=== PATIENT | female | born 1955 | race Caucasian/White ===

== ENCOUNTER 2016-11-29 06:28 | Inpatient (IN) | payer BC, MEDICARE ==
[2016-11-23 14:34] LABS: BASOPHILS 0.3 %; BASOPHILS ABSOLUTE 0.02 10/3/uL (0.0-0.16); EOSINOPHILS 0.8 %; EOSINOPHILS ABSOLUTE 0.06 10/3/uL (0.0-0.53); HEMATOCRIT 41.5 % (36.0-48.0); HEMOGLOBIN 14.1 g/dL (12.0-16.0); IMMATURE GRANULOCYTES 0.1 %; IMMATURE GRANULOCYTES ABSOLUTE 0.01 10/3/uL (0.0-0.11); LYMPHOCYTES 33.9 %; LYMPHOCYTES ABSOLUTE 2.42 10/3/uL (0.67-4.30); MEAN CORPUSCULAR HEMOGLOB 32.7 pg (26.0-34.0); MEAN CORPUSCULAR VOLUME 96.3 fL (80-100); MEAN PLATELET VOLUME 9.6 fL (9.2-13.0); MONOCYTES 7.4 %; MONOCYTES ABSOLUTE 0.53 10/3/uL (0.21-1.20); NEUTROPHILS 57.5 %; NEUTROPHILS ABSOLUTE 4.09 10/3/uL (2.02-8.40); PLATELET COUNT 285 10/3/uL (150-400); RBC DISTRIBUTION WIDTH 12.3 % (12.0-16.0); RED CELL COUNT 4.31 10/6/uL (4.0-5.6); WHITE BLOOD CELLS 7.1 10/3/uL (4.5-10.5)
[2016-11-23 14:35] LABS: MANUAL DIFF NO %
[2016-11-23 14:48] LABS: ALKALINE PHOSPHATASE 65 U/L (45-117); CHLORIDE, SERUM 98 MMOL/L (96-112); CREATININE 1.15 MG/DL (0.55-1.02); GFR AFRICAN AMERICAN 60 ML/MIN (>=60); GFR NON AFRICAN AMERICAN 52 ML/MIN (>=60); POTASSIUM, SERUM 4.3 MMOL/L (3.5-5.3); SGOT(AST) 24 U/L (5-40); SGPT(ALT) 32 U/L (5-65); SODIUM, SERUM 138 MMOL/L (135-148); TOTAL BILIRUBIN 0.5 MG/DL (0-1.2)
[2016-11-23 14:49] LABS: A/G RATIO 1.1 (0.7-1.9); ALBUMIN 4.1 G/DL (3.5-5.0); BUN (BLOOD UREA NITROGEN) 24 MG/DL (6-23); CALCIUM, SERUM 9.5 MG/DL (8.5-10.4); CO2 (CARBON DIOXIDE) 31 MMOL/L (24-34); GLOBULIN 3.8 G/DL (2.5-4.1); GLUCOSE, SERUM 102 MG/DL (60-99); TOTAL PROTEIN 7.9 G/DL (6.0-8.5)
--- NOTE | ~2016-11-29 | OP ---
Record Of Operation [facility] [place] [address] [place]. [address] NAME: ROLANDO STEWART : 59 STATUS : DIS IN PAT#: [id number] AGE: 61 ADM/REG DATE : 11/29/16 MR#: [id number] REPORT SERV DATE: 12/26/16 DICTATED BY: BOOM MALIK DATE: 12/26/16 REPORT STATUS : Draft TRANSCRIBED BY: MODL DATE: 12/26/16 DATE OF PROCEDURE: 11/29/2016 PREOPERATIVE DIAGNOSIS: Morbid obesity. POSTOPERATIVE DIAGNOSIS: Morbid obesity. PROCEDURE PERFORMED: Laparoscopic Garfield-en-Y gastric bypass. DIRECTOR OF SECURITY: Marvin Cruz. ANESTHESIA: General. INDICATIONS FOR PROCEDURE: The patient is a 61-year-old, morbidly obese female who presents for elective laparoscopic Garfield-en-Y gastric bypass. Please see history and physical for further details. INTRAOPERATIVE FINDINGS: The size of the gastric pouch was approximately 15 mL. Length of the Garfield limb was 100 cm. Length of the biliopancreatic limb was 40 cm. The gastrojejunostomy was a linear stapled anastomosis. There was no air leak with insufflation under water. SPECIMENS: Lab none. ESTIMATED BLOOD LOSS: 20 mL. DESCRIPTION OF PROCEDURE: After obtaining informed consent, patient was taken to the operating room, placed in supine position. General anesthesia was administered, and the patient's abdomen was prepped and draped in usual sterile fashion. Laparoscope was used to guide direct entry of a 12 mm port in the patient's left upper quadrant. The abdomen is insufflated and laparoscope was introduced and a 12 mm port was placed in the upper midline. Two 12 mm ports were placed in the patient's right upper quadrant. A 5 mm port was placed in subxiphoid position. This was used to pass Nader retractor. Nader retractor was used to retract the left lobe of the liver anteriorly to facilitate exposure of the proximal stomach and hiatus. The 5 mm port was then placed in the left upper quadrant more lateral to the first port. Patient was placed in reverse Trendelenburg position. The fat pad at the angle of His was then excised. A defect was made between the lesser curvature of the stomach and lesser curvature of the vessels approximately 6 cm distal to the gastroesophageal junction. The stomach was then partially transected at this point using an [employer] [place] stapler and a 60 mm blue load. The 34-Azeri Shania tube was placed in the proximal gastric pouch and used as a guide for creation of the pouch. The pouch was then completed with sequential fires of 60 mm blue loads from the crotch of the previous staple line to just to left of the angle of His. Once the gastric pouch was completely from the remnant stomach, the staple lines were inspected and noted to be complete and intact with good hemostasis. The omentum was then divided in midline from its point of attachment to the transverse colon to its free edges using the Harmonic Scalpel. The Record Of Operation [facility] [place] [address] [place]. [address] NAME: ROLANDO STEWART : 59 STATUS : DIS IN PAT#: [id number] AGE: 61 ADM/REG DATE : 11/29/16 MR#: [id number] REPORT SERV DATE: 12/26/16 DICTATED BY: BOOM MALIK DATE: 12/26/16 REPORT STATUS : Draft TRANSCRIBED BY: CONCHIS DATE: 12/26/16 transverse mesocolon was elevated. Ligament of Treitz was identified. 40 cm of jejunum was played out from the ligament of Treitz in a clockwise fashion. This was brought antecolic and antegastric to align in position next to the end of the gastric pouch. No tension was noted and a linear stapled gastrojejunostomy was then performed using approximately 45 mm of a 60 mm blue load. The jejunum was then divided approximately 2 cm to the left of the gastrojejunostomy using a 60 mm white load. The common enterotomy was closed with running 2 0 Vicryl suture and this was reinforced with a second layer of running 2-0 Vicryl suture. The 34-Azeri Shania tube was placed across the anastomosis to ensure there is no undue narrowing at the anastomosis. The anastomosis was inspected and noted to be complete and intact and hemostatic, appeared to be widely patent. 100 cm of jejunum was then played out distal to the gastrojejunostomy in a counterclockwise fashion. This was brought next to the biliopancreatic limb and a [id number] jejunojejunostomy was then performed using a 60 mm white load. The common enterotomy was closed with running 2-0 Vicryl suture. A 2-0 silk suture was used to place a Brolin stitch and this was continued to close the mesenteric defect. The anastomosis was inspected and noted to be complete and intact with good hemostasis. It also appeared to be widely patent. The Garfield limb was run for configuration. Configuration appeared to be good. The antecolic Lerma's defect was closed with running 2-0 silk suture. The gastrojejunostomy was checked with air insufflation under water. No air leak was noted. The Shania tube was then removed. The liver retractor was removed. The liver appeared to be in good condition. The abdomen was inspected for hemostasis. Hemostasis was noted. The abdomen was then desufflated, and all trocars were removed. Wounds were irrigated. Hemostasis achieved with Bovie electrocautery. Skin was closed with 4-0 Monocryl in subcuticular fashion. Steri-Strips were applied. Sterile dressings were placed, and the patient is awaken from anesthesia and taken to recovery room in good condition. PTEER/CONCHIS Boom Malik M.D. / [id number] CC: Kishor Ramirez LINDA S
[~2016-11-29 06:28] MED LIST: ABILIFY15 PO; AMARYL1 MG PO; AMB10 PO; ASAB PO; BIST PO; BUM1 PO; BUSPAR15 M1 PO; BUSPAR5 PO; CLARIT10 PO; COMBIVENT INH; COMBIVENT INHAL15 GM INH; COMBIVENT RESPIM4 GM INH; DOLOPHINE10 MG PO; DSS PO; ENDOMETRIN100 MG VA; FESO4 PO; FLEX PO; FLONASE NAS; FLONASE NASAL S16 GM NAS; GLUCOPHAGE1000 MG PO; GLUCPH PO; GLUCPH8 PO; KDUR20 PO; KLONO1 PO; KLONO2 PO; KLONOPIN WAF1 MG PO; KLOR-CON M2020 MEQ PO; L40 PO; LANTUS SC; LOP25 PO; LOP50 PO; LORTAB 5 PO; LORTAB10 PO; LOVENOX40 SC; MICRO-K10 MEQ; MICRO-K10 MEQ PO; MIRALAXPKT PO; MVI PO; NICORETTE ST2 MG PO; NORCO1 TAB PO; NOVOLOG SC; PEP20 PO; PR25 PO; PREV30 PO; PRILO PO; PRIN2.5 PO; PROAIR HFA INH; PROGESTERONE PO; PROMETRIUM PO; PROVHFA INH; SENNA8.6 M1 PO; TOPAMAX25 PO; TOPAMAX50 MG PO; VICODINTAB PO; WELL100 PO; WELL75 PO; ZETIA PO; [UNRECOGNIZED DRUG - REMARK] OP
[2016-11-30 06:39] LABS: BASOPHILS 0 %; EOSINOPHILS 0 %; HEMOGLOBIN 12.4 g/dL (12.0-16.0); IMMATURE GRANULOCYTES 0.2 %; IMMATURE GRANULOCYTES ABSOLUTE 0.02 10/3/uL (0.0-0.11); LYMPHOCYTES 15.2 %; LYMPHOCYTES ABSOLUTE 1.73 10/3/uL (0.67-4.30); MEAN CORPUS HGB CONC 34.5 g/dL (32.0-36.0); MEAN CORPUSCULAR HEMOGLOB 32.6 pg (26.0-34.0); MEAN CORPUSCULAR VOLUME 94.5 fL (80-100); MEAN PLATELET VOLUME 9.4 fL (9.2-13.0); MONOCYTES 7.3 %; MONOCYTES ABSOLUTE 0.83 10/3/uL (0.21-1.20); NEUTROPHILS 77.3 %; NEUTROPHILS ABSOLUTE 8.79 10/3/uL (2.02-8.40); PLATELET COUNT 242 10/3/uL (150-400); RBC DISTRIBUTION WIDTH 12.4 % (12.0-16.0)
[2016-11-30 06:40] LABS: HEMATOCRIT 35.9 % (36.0-48.0); MANUAL DIFF NO %; WHITE BLOOD CELLS 11.4 10/3/uL (4.5-10.5)
[2016-11-30 06:52] LABS: A/G RATIO 0.8 (0.7-1.9); ALBUMIN 3.3 G/DL (3.5-5.0); ALKALINE PHOSPHATASE 59 U/L (45-117); CALCIUM, SERUM 8.6 MG/DL (8.5-10.4); CHLORIDE, SERUM 104 MMOL/L (96-112); CREATININE 0.96 MG/DL (0.55-1.02); GFR AFRICAN AMERICAN 75 ML/MIN (>=60); GFR NON AFRICAN AMERICAN 65 ML/MIN (>=60); GLOBULIN 4.2 G/DL (2.5-4.1); POTASSIUM, SERUM 4.1 MMOL/L (3.5-5.3); SGOT(AST) 237 U/L (5-40); SGPT(ALT) 237 U/L (5-65); SODIUM, SERUM 136 MMOL/L (135-148); TOTAL BILIRUBIN 0.7 MG/DL (0-1.2); TOTAL PROTEIN 7.5 G/DL (6.0-8.5)
[2016-11-30 06:57] LABS: BUN (BLOOD UREA NITROGEN) 13 MG/DL (6-23); CO2 (CARBON DIOXIDE) 22 MMOL/L (24-34); GLUCOSE, SERUM 251 MG/DL (60-99)
[2016-11-30] MEDS ORDERED: PROTONIX PO (16:22)
[2016-11-30] MEDS ORDERED: ZOFRAN4 PO (16:23)
[2016-11-30] MEDS ORDERED: PLAVIX PO (16:24)
[2016-11-30] MEDS ORDERED: LEVSINTAB PO (16:24)
[2016-11-30] MEDS ORDERED: PR25 PO (16:24)
== END 2016-11-30 18:23 | disposition home or self-care (01) | DRG 620 ==
LOC: SDC/OF 06:28 → PACU 10:58 → 2SO 13:34
PROVIDERS: Surgery
PROC: 0D164ZA Bypass Stomach to Jejunum, Percutaneous Endoscopic Approach (ICD-10-PCS; principal; 2016-11-29 07:45)
DX: E66.01 Morbid (severe) obesity due to excess calories (principal); I42.1 Obstructive hypertrophic cardiomyopathy; K21.9 Gastro-esophageal reflux disease without esophagitis; I48.91 Unspecified atrial fibrillation; E78.00 Pure hypercholesterolemia, unspecified; I10 Essential (primary) hypertension; E78.5 Hyperlipidemia, unspecified; F31.9 Bipolar disorder, unspecified; F41.9 Anxiety disorder, unspecified; J45.909 Unspecified asthma, uncomplicated; M19.90 Unspecified osteoarthritis, unspecified site; E11.9 Type 2 diabetes mellitus without complications; G47.33 Obstructive sleep apnea (adult) (pediatric); Z88.0 Allergy status to penicillin; Z90.49 Acquired absence of other specified parts of digestive tract; Z90.710 Acquired absence of both cervix and uterus; Z98.890 Other specified postprocedural states; Z88.5 Allergy status to narcotic agent; Z88.1 Allergy status to other antibiotic agents; Z95.0 Presence of cardiac pacemaker; Z68.41 Body mass index [BMI] 40.0-44.9, adult
CPT/HCPCS: 80053; 82962; 83036; 85025; 93005; A9270-GY; J1170; J1580; J2405; J2550; J2710; J3010